=== PATIENT | male | born 1970 | race Caucasian/White ===

== ENCOUNTER 2020-03-15 12:26 | Inpatient (IN) | payer MEDICAID, MEDICARE, OTHER ==
[2020-03-15] VITALS (7 sets, daily range): BP systolic 85–153; BP diastolic 63–104
[~2020-03-15] VITALS: Ht 160 cm; Wt 111.0 kg
--- NOTE | 2020-03-15 12:45 | EKG ---
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 LEFTWARD AXIS CONSIDER LEFT VENTRICULAR HYPERTROPHY Electronically Signed On 03-17-2020 15:25:35 CDT by Alvin Hansen
[2020-03-15] MEDS ORDERED: dilTIAZem 25 MG/5 ML VIAL IVP ONE ×3 (12:57→13:35)
[2020-03-15 13:14] LABS: BASO # 0.1 x10^3/uL (0.0-0.2); BASO % 1 % (0-3); EOS # 0.4 x10^3/uL (0.0-0.7); EOS % 6 % (0-3); HEMATOCRIT 48.2 % (39.0-53.0); HEMOGLOBIN 16.3 g/dL (13.0-17.5); LYMPH # 2.5 x10^3/uL (1.0-4.8); LYMPH % 36 % (24-48); MEAN CORPUSCULAR HEMOGLOBIN 33 pg (25-35); MEAN CORPUSCULAR HGB CONC 34 g/dL (31-37); MEAN CORPUSCULAR VOLUME 98 fL (79-100); MONO # 0.7 x10^3/uL (0.0-1.1); MONO % 10 % (0-9); NEUT # 3.3 x10^3uL (1.8-7.7); NEUT % 48 % (31-73); PLATELET COUNT 250 x10^3/uL (140-400); RED BLOOD COUNT 4.91 x10^6/uL (4.30-5.70); RED CELL DISTRIBUTION WIDTH 14.2 % (11.5-14.5); WHITE BLOOD COUNT 6.9 x10^3/uL (4.0-11.0)
[2020-03-15 13:18] LABS: CREATININE 1.2 mg/dL (0.7-1.3); GFR 63.8; POTASSIUM 4.3 mmol/L (3.5-5.1)
--- NOTE | 2020-03-15 13:23 | RAD ---
CHEST AP ONLY History: Reason: afib / Spl. Instructions: / History: Comparison: None. Findings: No consolidation or pleural effusion. Normal heart size. No pneumothorax. Impression: 1. No acute cardiopulmonary process. Electronically signed by: Rowdy Bower DO (03/15/2020 1:20 PM) [facility]
[2020-03-15 13:30] LABS: ALBUMIN 4.2 g/dL (3.4-5.0); ALBUMIN/GLOBULIN RATIO 1.1 (1.0-1.7); TOTAL PROTEIN 8.2 g/dL (6.4-8.2)
[2020-03-15] MEDS: dilTIAZem VIAL 125 MG in IV NORMAL SALINE 100ML 100 ML IV PRN ×2 (14:47→20:39)
--- NOTE | 2020-03-15 16:40 | NUR ---
pt admitted to ICU bed 6. Pt is able to verbalize understanding of poc and orientation to unit. PT is on 10 mg of cardizem on arrival to ICU with a HR of 111. Will continue to monitor. Lauren RICHARDS
[2020-03-15] MEDS ORDERED: ALPR0.25 PO (16:44)
[2020-03-15] MEDS ORDERED: QUET300T5 PO (16:44)
[2020-03-15] MEDS ORDERED: BUSP10TA PO (16:44)
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
[2020-03-15] MEDS ORDERED: ONDANSETRON PF 4 MG/2 ML VIAL. IVP PRN (17:00)
[2020-03-15] MEDS ORDERED: ACETAMINOPHEN 325 MG TABLET PO PRN (17:00)
[2020-03-15] MEDS ORDERED: NITROGLYCERIN SUBLINGUAL 0.4 MG BOTTLE OF 25. SL ONE (17:43)
[2020-03-15] MEDS ORDERED: MORPHINE SULFATE 2 MG/ML DISP.SYRIN. IV PRN (17:45)
[2020-03-15] MEDS ORDERED: NITROGLYCERIN SUBLINGUAL 0.4 MG BOTTLE OF 25. SL PRN (17:45)
--- NOTE | 2020-03-15 17:52 | NUR ---
pt having chest pain/pressure in L U chest rated at 9/10. Dr Goldstein on unit instructed to try nitro 0.4 SL x 1 then morphine if unrelieved. PT was eating and HR 133's. Hr is now 110 and pt still having pressure. Clint RICHARDS
[2020-03-15] MEDS ORDERED: DIGOXIN IV 500 MCG/2 ML AMPUL. IV ONE ×2 (18:15→20:15)
[2020-03-15] MEDS ORDERED: MORPHINE SULFATE 4 MG/ML DISP.SYRIN. IV PRN (18:30)
[2020-03-15] MEDS ORDERED: ALPRAZolam 0.25 MG TABLET PO PRN (18:30)
[2020-03-15] MEDS ORDERED: ASPIRIN 325 MG TABLET PO ONE (18:30)
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
--- NOTE | 2020-03-15 18:39 | EKG ---
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
[2020-03-15] MEDS: ENOXAPARIN ** NOTE DOSE ** SYRINGE SQ SCH (20:38)
[2020-03-15] MEDS: busPIRone 10 MG TABLET. PO SCH (20:38)
[2020-03-15] MEDS ORDERED: QUEtiapine 100 MG TABLET. PO SCH (21:00)
[2020-03-15] MEDS ORDERED: LORazepam 1 MG TABLET PO PRN (22:00)
--- NOTE | 2020-03-15 22:16 | NUR ---
Pt is c/o of increased anxiety and chest pain. Call to Dr. Goldstein for medication for anxiety, orders received. Morphine given for chest pain. Will continue to evaluate and monitor.
[2020-03-16] VITALS (15 sets, daily range): BP systolic 92–151; BP diastolic 60–94
--- NOTE | 2020-03-16 04:30 | NUR ---
Pt converted to sinus deisi at this time. HR in the 40s. Cardizem turned off at this time. Will continue to monitor.
[2020-03-16 06:35] LABS: CALCIUM 8.2 mg/dL (8.5-10.1); CREATININE 1.1 mg/dL (0.7-1.3); GFR 70.6; MAGNESIUM 2.2 mg/dL (1.8-2.4)
[2020-03-16] MEDS: ENOXAPARIN ** NOTE DOSE ** SYRINGE SQ SCH (09:00)
[2020-03-16] MEDS: busPIRone 10 MG TABLET. PO SCH (09:00)
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
[2020-03-16] MEDS ORDERED: METOPROLOL TART IMMED RELEASE 25 MG TABLET PO SCH (10:00)
[2020-03-16] MEDS ORDERED: APIXABAN 5 MG TABLET. PO SCH (10:30)
--- NOTE | 2020-03-16 13:18 | CARD ---
MR#: [id number] Date of Study: 03/16/2020 Ordering Physician: PARAMJIT DUNN, Referring Physician: PARAMJIT DUNN, Tech: Macie Sarmiento APPROVED REPORT EXAM: Two-dimensional and M-mode echocardiogram with Doppler and color Doppler. Other Information Quality : AverageHR: 68bpm INDICATION Palpitations Arrhythmia Dyspnea Chest Pain 2D DIMENSIONS RVDd2.3 (2.9-3.5cm)Left Atrium(2D)4.0 (1.6-4.0cm) IVSd1.3 (0.7-1.1cm)Aortic Root(2D)2.7 (2.0-3.7cm) LVDd4.7 (3.9-5.9cm)LVOT Diameter2.0 (1.8-2.4cm) PWd1.3 (0.7-1.1cm)LVDs3.0 (2.5-4.0cm) FS (%) 35.7 %SV65.7 ml Aortic Valve AoV Peak Gerardo.177.7cm/sAoV VTI37.0cm AO Peak GR.12.6mmHgLVOT Peak Gerardo.112.1cm/s LVOT VTI 26.87cmAO Mean GR.6mmHg GINO (VMAX)1.63ey6BTR (VTI)2.27cm2 Mitral Valve MV E Jbcblllq88.7cm/sMV E Peak Gr.2mmHg MV DECEL ADOS306inEG A Hgummgoa77.3cm/s MV E Mean Gr.1mmHgE/A Ratio0.7 Pulmonary Valve PV Peak Yghpbamn367.6cm/sPV Peak Grad.4mmHg Tricuspid Valve TR P. Npmkwgpk399el/sRAP JWZCQRLA8lzAs TR Peak Gr.96hpMdGENJ11lcFz Pulmonary Vein S1 Ysydofmi60.8cm/sD2 Bifqhnwb94.0cm/s LEFT VENTRICLE The left ventricle is normal size. There is mild to moderate concentric left ventricular hypertrophy. The left ventricular systolic function is normal and the ejection fraction is within normal range. T he Ejection Fraction is 60-65%. There is normal LV segmental wall motion. Transmitral Doppler flow pa ttern is Grade I-abnormal relaxation pattern. RIGHT VENTRICLE The right ventricle is borderline dilated. There is normal right ventricular wall thickness. The righ t ventricular systolic function is normal. ATRIA The left atrium size is normal. The right atrium size is normal. The interatrial septum is intact wit h no evidence for an atrial septal defect or patent foramen ovale as noted on 2-D or Doppler imaging. AORTIC VALVE The aortic valve is normal in structure and function. Doppler and Color Flow revealed no significant aortic regurgitation. There is no significant aortic valvular stenosis. MITRAL VALVE The mitral valve is normal in structure and function. There is no evidence of mitral valve prolapse. There is no mitral valve stenosis. Doppler and Color-flow revealed trace mitral regurgitation. TRICUSPID VALVE The tricuspid valve is normal in structure and function. Doppler and Color Flow revealed trace tricus pid regurgitation with an estimated PAP of 26 mmHg. There is no tricuspid valve stenosis. PULMONIC VALVE The pulmonic valve is not well visualized. Doppler and Color Flow revealed trace pulmonic valvular re gurgitation. GREAT VESSELS The aortic root is normal in size. The ascending aorta is normal in size. The IVC is normal in size a nd collapses >50% with inspiration. PERICARDIAL EFFUSION There is no evidence of significant pericardial effusion. Critical Notification Critical Value: No <Conclusion> The left ventricle is normal size. The left ventricular systolic function is normal and the ejection fraction is within normal range. The Ejection Fraction is 60-65%. There is mild to moderate concentric left ventricular hypertrophy. Doppler and Color Flow revealed no significant aortic regurgitation. There is no significant aortic valvular stenosis. Doppler and Color-flow revealed trace mitral regurgitation. Doppler and Color Flow revealed trace tricuspid regurgitation with an estimated PAP of 26 mmHg. Signed by : Alvin Hansen MD Electronically Approved : 03/16/2020 13:18:42
--- NOTE | 2020-03-16 13:45 | PN ---
DATE: SUBJECTIVE: The patient is a 49-year-old male patient who was admitted yesterday with new-onset atrial fibrillation with rapid ventricular response. He also has extreme anxiety and he was started on a Cardizem drip and also received digoxin total of 500 mcg and it converted spontaneously to sinus rhythm at around 3:00 this morning. He was seen in consultation by the Cardiology team and he was started on metoprolol 12.5 mg once a day as well as apixaban 5 mg twice a day. When I saw him this afternoon when he was talking to his family, they said that his speech is slurred and he has also complained of some tingling and numbness in his right upper extremity. He stated that he had had a cerebrovascular accident in 2004 and was admitted to hospital in [facility] where he stayed there for about 6 weeks. I do not have all the specifics; however, I did fairly detailed neurological exam, which showed no obvious lateralizing sign. Given that he might have paroxysmal atrial fibrillation obviously a cardioembolic source of cerebrovascular accident is possible and therefore, I have arranged for him to have a CT scan of the head without contrast, bilateral carotid Doppler ultrasound. I will consult Dr. Roberto and also physical and occupational therapist. PHYSICAL EXAMINATION: GENERAL: When I examined him this afternoon, he looked well and was clearly in no apparent respiratory distress. There is no pallor, jaundice, cyanosis or thyromegaly. No jugular venous distention or limb edema. VITAL SIGNS: Her heart rate was 55, blood pressure was 112/82, his temperature was 98, respiratory rate was 15 and oxygen saturation was 94% on room air. HEAD, EYES, EARS, NOSE AND THROAT: Showed normocephalic, atraumatic. NECK: Supple. HEART: Showed normal first and second heart sounds with no gallop, rub or murmur. CHEST: Clear to auscultation. No crepitation or rhonchi. ABDOMEN: Distended, soft, nontender. NEUROLOGIC: He was obviously awake, alert, responding appropriately. All his cranial nerves are intact. There is no obvious lateralizing sign, nor there is any cerebellar dysfunction. He was a little bit dizzy when he stood the first time, but we did check his orthostatics and his blood pressure lying, sitting and standing are within normal range with no evidence of any significant postural hypotension. LABORATORY DATA: His lab work this morning showed a serum sodium 139, potassium 4, chloride 103, bicarbonate 26, anion gap of 10, BUN 16, creatinine 1.1, estimated GFR was 70 mL per minute, his glucose 124, calcium was 8.2, magnesium was 2.2, has 3 sets of cardiac enzymes that ruled out myocardial infarction. His total protein was 8.2, albumin was 2.2. ASSESSMENT: 1. The patient did complain yesterday of chest pain; however, had 3 sets of cardiac enzymes that had ruled out myocardial infarction. 2. Paroxysmal atrial fibrillation with rapid ventricular rate that is new onset. He is back to sinus rhythm. He was on Cardizem drip and he is now on metoprolol 12.5 mg twice a day. 3. Accelerated hypertension, much improved. 4. Elevated liver enzymes, likely due to nonalcoholic steatohepatitis. 5. Severe anxiety and depression and probable obstructive sleep apnea. The patient also has questionable cerebrovascular accident for which he was admitted to the hospital in [facility]; however, I do not have any details. PLAN: My plan is to consult Dr. Robreto and do a CT scan of the head, bilateral carotid Doppler. He has had an echocardiogram that was done, but it was not read yet and should Dr. Roberto thinks that he can be discharged tonight, we will discharge him on metoprolol and apixaban. ELIANE TINOCO MD DR: CARLA/shiloh JOB#: [id number] / [id number]
--- NOTE | 2020-03-16 13:48 | RAD ---
STUDY: CT head without contrast INDICATION: Slurred speech and right upper extremity numbness. COMPARISON: 11/13/2014 TECHNIQUE: Axial CT imaging through the head without the use of intravenous contrast. Sagittal and coronal reformats were obtained. One or more of the following individualized dose reduction techniques were utilized for this examination: 1. Automated exposure control 2. Adjustment of the mA and/or kV according to patient size 3. Use of iterative reconstruction technique. FINDINGS: No acute intracranial hemorrhage. Sanchez-white matter differentiation is maintained. Small focus of low attenuation along the lower margin of the left lentiform nucleus, image 13 series 2, was present on the 2014 comparison. No mass effect, midline shift or hydrocephalus. Unchanged relatively prominent extra-axial spaces overlying the cerebral convexities for patient age. Intact calvarium. Unchanged orbits to include a radiodense object seen along the lateral margin of the inferior rectus muscle. The visualized paranasal sinuses are normally aerated as are the mastoid air cells and middle ears. IMPRESSION: 1. No acute intracranial abnormality by CT. If there is concern for an acute ischemic event MRI is recommended. 2. Unchanged chronic findings as above. Electronically signed by: GHISLAINE CHAUHAN MD (03/16/2020 1:46 PM) [id number]
--- NOTE | 2020-03-16 15:06 | RAD ---
DOPPLER CAROTID BILAT History: Reason: SLURRING OF SPEECH AND NUMBNESS OF THE RUE / Spl. Instructions: / History: COMPARISON: None Technique: Duplex sonography of the cervical portion of both carotid arteries was performed. Real-time grayscale, color flow Doppler, and Doppler spectral waveform analysis is performed. RS Compliance Statement - Stenosis calculations for CT, MR and conventional angiography are based upon measurement of the distal ICA diameter in accordance with the NASCET methodology. Stenosis calculations for carotid ultrasound studies are derived from validated velocity criteria which are known to correlate with the NASCET methodology. Findings: Right side: Peak systolic flow velocity of the CCA is 78 cm/sec. Peak systolic flow velocity of the ICA is 83 cm/sec. The ICA/CCA ratio is 1.1. Peak end diastolic flow velocity of the ICA is 30 cm/sec. The peak systolic velocity of the ECA is 97 cm/sec. No significant plaque formation is identified, Left side: Peak systolic flow velocity of the CCA is 93 cm/sec. Peak systolic flow velocity of the ICA is 99 cm/sec. The ICA/CCA ratio is 1.1. Peak end diastolic flow velocity of the ICA is 30 cm/sec. Peak systolic flow velocity of the ECA is 122 cm/sec. No significant plaque formation is identified. Vertebral arteries: Bilateral vertebral arteries demonstrate antegrade flow. IMPRESSION: 1. No hemodynamically significant internal carotid artery stenosis. Electronically signed by: Rowdy Bower DO (03/16/2020 3:03 PM) [facility]
[2020-03-16 16:28] LABS: THYROID STIM HORMONE (TSH) 1.989 uIU/mL (0.358-3.740)
[2020-03-16] MEDS ORDERED: APIX5TAB3 PO (19:12)
[2020-03-16] MEDS ORDERED: METO25TA4 PO (19:12)
--- NOTE | 2020-03-16 19:31 | DS ---
DATE OF DISCHARGE: 03/16/2020 HOSPITAL COURSE: The patient was admitted with new onset of atrial fibrillation with rapid ventricular response. He also complained of chest pain, had 3 sets of cardiac enzymes that ruled out myocardial infarction, was started on Cardizem drip and he converted to normal sinus rhythm. He was seen by the melter assistant and was started on metoprolol as well as apixaban. He did complain that he has slurring of speech and tingling and numbness of his right upper extremity for which we did a CT scan of the head, which showed no acute intracranial abnormality and unchanged chronic finding. He apparently has small focus of low attenuation along the lower margin of the left lentiform nucleus that was present in 2015 comparison. No mass effect or midline shift or hydrocephalus. He had bilateral carotid Doppler ultrasound which showed no hemodynamically significant internal carotid artery stenosis and we did consult Dr. Roberto, who apparently stated that the patient can be discharged. PHYSICAL EXAMINATION: GENERAL: When I saw him this afternoon, he looked well and was clearly in no apparent distress. No pallor, jaundice, cyanosis or thyromegaly. No jugular venous distention. No limb edema. VITAL SIGNS: Her heart rate was 74, blood pressure was 128/86, temperature was 98, respiratory rate was 19 and oxygen saturation was 96%. The rest of clinic exam including a detailed neurological exam was unremarkable. LABORATORY DATA: Stable with a hemoglobin 16, hemoglobin 48 with normal white cell count and platelets. His chemistry showed a serum sodium 139, potassium 4, chloride 103, bicarbonate 26, anion gap of 10, BUN 16, creatinine 1.1, estimated GFR was 70 mL per minute, his glucose 124. His serum triglycerides were 270, total cholesterol 248, LDL was 152, VLDL was 54, HDL cholesterol 42 and the ratio was 5. His TSH was normal at 1.989. DISCHARGE MEDICATIONS: He was discharged home to continue on apixaban 5 mg twice a day, metoprolol 12.5 mg twice a day together with alprazolam 0.5 mg every 6 hours, buspirone 10 mg twice a day and quetiapine fumarate for Seroquel 300 mg at bedtime. FINAL DISCHARGE DIAGNOSES: Atrial fibrillation with rapid ventricular response, rate controlled, well anticoagulated, chest pain, acute myocardial infarction ruled out, accelerated hypertension, much improved, elevated liver enzymes, likely due to nonalcoholic steatohepatitis, history of cerebrovascular accident, anxiety and depression and hyperlipidemia. I will start him also on Lipitor and he should follow with his primary care physician. ELIANE TINOCO MD DR: CARLA/shiloh JOB#: [id number] / [id number]
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
== END 2020-03-16 19:31 | disposition home or self-care (01) | DRG 310 ==
LOC: ER 12:26 → ICU 14:30
PROVIDERS: ADMIT Internal Medicine; ATTEND Internal Medicine
DX: I48.0 Paroxysmal atrial fibrillation (principal); F41.9 Anxiety disorder, unspecified; I10 Essential (primary) hypertension; E78.5 Hyperlipidemia, unspecified; E66.9 Obesity, unspecified; F32.9 Major depressive disorder, single episode, unspecified; G47.33 Obstructive sleep apnea (adult) (pediatric); K75.81 Nonalcoholic steatohepatitis (NASH); Z56.0 Unemployment, unspecified; Z79.01 Long term (current) use of anticoagulants; Z86.73 Personal history of transient ischemic attack (TIA), and cerebral infarction without residual deficits; Z83.3 Family history of diabetes mellitus; Z82.49 Family history of ischemic heart disease and other diseases of the circulatory system
CPT/HCPCS: 36415; 70450; 71045; 80048; 80053; 80061; 83735; 84100; 84443; 84484; 85025; 93005; 93306; 93880; J1160; J1650; J2270; J3490

== ENCOUNTER 2022-03-07 16:01 | Emergency (ER) | payer MEDICARE ==
[~2022-03-07] VITALS: Ht 172.7 cm; Wt 117.4 kg
[~2022-03-07 16:01] MED LIST: ALPR0.25 PO; APIX5TAB3 PO; BUSP10TA PO; METO25TA4 PO; QUET300T5 PO
[2022-03-07 16:45] VITALS: BP 164/104
[2022-03-07] MEDS ORDERED: HYDR-2155 PO (17:14)
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
== END 2022-03-07 17:31 | disposition home or self-care (01) ==
LOC: ER 16:01
DX: K08.89 Other specified disorders of teeth and supporting structures (principal); F41.9 Anxiety disorder, unspecified; Z86.73 Personal history of transient ischemic attack (TIA), and cerebral infarction without residual deficits
CPT/HCPCS: 99283